=== PATIENT | male | born 1995 | race Two or more races ===

== ENCOUNTER 2017-02-10 12:58 | Emergency (ER) | payer OTHER ==
[2017-02-10 13:04] VITALS: BMI 27.7
--- NOTE | 2017-02-10 13:43 | DR.GENAD ---
HPI - PCP Primary Care Physician: NONE - Complaint/Symptoms Chief Complaint Doctors Comments: Patient was seen by his physician who treated him with azithrmycin, steroids and tessalon perles for cough diagnosed with bronchitis. He denies fever, or diarrhea. He denies getting the influenza shot. He denies cigarettes or alcohol use. Chief Complaint:: "I HAVE BEEN COUGHING AND COUGHING UP BLOOD FOR 2 WEEKS. I TOOK ZITHROMAX AND A STERIOD BUT IT HASN'T GOT ANY BETTER." Self Treatment fo Chief Complaint: ANTIBOTICS - Source History Provided: Patient - Mode of Arrival Mode of Arrival: Ambulatory - Timing Onset of Chief Complaint: 01/27/17 PMH - PMH Past Medical History: No Past Surgical History: No - Family History History of Family Medical Conditions: No - Social History Does patient currently use any type of tobacco product: No Have you used tobacco products in the last 12 months: No Type of Tobacco Use: None Does any household member use tobacco: No Alcohol Use: None Do you use any recreational Drugs:: No Lives With: Family Lives Where: Home - infectious screening In the last 2 months have you had wt loss of >10#?: NO Have you had fever, night sweats or hemotysis?: No Have you traveled outside the country in the last 6 months?: No Isolation: Standard ROS - Review of Systems Eyes: No Symptoms Reported ENTM: No Symptoms Reported Respiratoy: Dry Cough Cardiovascular: No Symptoms Reported Gastrointestinal/Abdominal: No Symptoms Reported Genitourinary: No Symptoms Reported Neurological: No Symptoms Reported Musculoskeletal: No Symptoms Reported Integumentary: No Symptoms Reported Hematologic/Lymphatic: No Symptoms Reported Endocrine: No Symptoms Reported Psychiatric: No Symptoms Reported All Other Systems: Reviewed and Negative PE - Vital Signs Vitals: Temperature 100.6 F Pulse Rate [Left Brachial] 132 Pulse Rate 124 Respiratory Rate 18 Blood Pressure [Left Arm] 117/57 Blood Pressure 127/69 O2 Sat by Pulse Oximetry 97 - General Limitations: No Limitations General Appearance: Alert, In No Apparent Distress - Head Head Exam: Normal Inspection, Atraumatic - Eyes Eye exam: Normal Appearance, PERRL, EOMI - ENT ENT Exam: Normal Exam External Ear Exam: Normal External Inspection TM/Canal Exam: Bilateral Normal Nose Exam: Normal Nose Exam Mouth Exam: Normal Inspection Throat Exam: Normal Inspection - Neck Neck Exam: Normal Inspection - Chest Chest Inspection: Normal Inspection - Respiratory Respiratory Exam: Normal Lung Sounds Bilat Respiratory Exam: Bilateral Clear to Auscultation - Cardiovascular Cardiovascular Exam: Regular Rate, Tachycardia - Abdominal Exam Abdominal Exam: Normal Inspection, Normal Bowel Sounds Abdominal Tenderness: negative: RUQ, RLQ, LUQ, LLQ, Epigastrium, Suprapubic, Diffuse, Mild, Moderate, Severe, Other - Extremities Extremities Exam: Normal Inspection, Full ROM - Back Back Exam: Normal Inspection - Neurologic Neurological Exam: Alert, Oriented X3, CN II-XII Intact - Psychiatric Psychiatric Exam: Normal Affect - Skin Skin Exam: Warm, Dry, Intact Course - Reevaluation 1st: Improved - Consultation Called: 16:00 (Dr Rodgers accepted for further evaluation and treatment) ROR - Labs Reviewed Result Diagrams: 02/10/17 13:55 02/10/17 13:55 Laboratory: WBC 13.9 X10^3/uL (3.6-10.0) H 02/10/17 13:55 RBC 4.13 X10^6/uL (4.7-6.0) L 02/10/17 13:55 Hgb 12.4 g/dL (13.5-18.0) L 02/10/17 13:55 Hct 36.1 % (42.0-54.0) L 02/10/17 13:55 MCV 87.4 fL (80.0-100.0) 02/10/17 13:55 MCH 29.9 pg (27.0-34.0) 02/10/17 13:55 MCHC 34.2 g/dL (33.0-35.0) 02/10/17 13:55 RDW 12.8 % (11.6-16.5) 02/10/17 13:55 Plt Count 190 X10^3/uL (150.0-450.0) 02/10/17 13:55 MPV 7.8 fL (7.4-11.0) 02/10/17 13:55 Neut % 81.6 % (42.0-75.0) H 02/10/17 13:55 Lymph % 8.5 % (21.0-51.0) L 02/10/17 13:55 Mayes % 9.3 % (0.0-13.0) 02/10/17 13:55 Eos % 0.3 % (0.9-2.9) L 02/10/17 13:55 Baso % 0.3 % (0.2-1.0) 02/10/17 13:55 Neut # 11.3 x10^3/uL (2.2-4.8) H 02/10/17 13:55 Lymph # 1.2 X10^3/uL (1.3-2.9) L 02/10/17 13:55 Mayes # 1.3 x10^3/uL (0.3-0.8) H 02/10/17 13:55 Eos # 0.0 x10^3/uL (0.0-0.2) 02/10/17 13:55 Baso # 0.0 X10^3/uL (0.0-0.1) 02/10/17 13:55 Absolute Nucleated RBC 0.0 /100WBC 02/10/17 13:55 Sample Site Rb 02/10/17 14:53 ABG pH 7.440 (7.35-7.45) 02/10/17 14:53 ABG pCO2 27.0 mmHg (35.0-45.0) L 02/10/17 14:53 ABG pO2 62.0 mmHg (80.0-100.0) L 02/10/17 14:53 ABG HCO3 18.3 mmol/L (22-26) L 02/10/17 14:53 ABG O2 Saturation 92.0 % (90-100) 02/10/17 14:53 ABG Base Excess -4.5 mmol/L (-2.0-2.0) L 02/10/17 14:53 [place] Test Na 02/10/17 14:53 A-a Gradient 54.0 mmHg 02/10/17 14:53 FiO2 21.000 02/10/17 14:53 Blood Gas Comments Oz well lj 02/10/17 14:53 Sodium 135 mmol/L (136-145) L 02/10/17 13:55 Corrected Sodium TNP 02/10/17 13:55 Potassium 4.1 mmol/L (3.5-5.1) 02/10/17 13:55 Chloride 100 mmol/L (98-107) 02/10/17 13:55 Carbon Dioxide 23.6 mmol/L (21-32) 02/10/17 13:55 BUN 18 mg/dL (7-18) 02/10/17 13:55 Creatinine 0.96 mg/dL (0.70-1.30) 02/10/17 13:55 Est GFR (MDRD) Af Amer > 60 (>60) 02/10/17 13:55 Est GFR (MDRD) Non-Af > 60 (>60) 02/10/17 13:55 Glucose 106 mg/dL (65-99) H 02/10/17 13:55 Lactic Acid 1.4 mmol/L (0.4-2.0) 02/10/17 14:55 Calcium 8.3 mg/dL (8.5-10.1) L 02/10/17 13:55 Corrected Calcium 9.3 mg/dL (8.5-10.1) 02/10/17 13:55 Total Bilirubin 3.80 mg/dL (0.2-1.0) H 02/10/17 13:55 AST 55 Units/L (15-37) H 02/10/17 13:55 ALT 115 Units/L (12-78) H 02/10/17 13:55 Alkaline Phosphatase 169 Units/L (46-116) H 02/10/17 13:55 C-Reactive Protein 88.00 mg/L (0-3.0) H 02/10/17 13:55 Total Protein 6.6 g/dL (6.4-8.2) 02/10/17 13:55 Albumin 2.8 g/dL (3.4-5.0) L 02/10/17 13:55 Globulin 3.8 g/dL (2.5-4.5) 02/10/17 13:55 Albumin/Globulin Ratio 0.7 Ratio (1.1-2.1) L 02/10/17 13:55 Influenza Type A (PCR) Negative (NEGATIVE) 02/10/17 14:25 Influenza Type B (PCR) Negative (NEGATIVE) 02/10/17 14:25 - XRAY XRAY Interpreted by: Radiologist (Chest: Mulltiple bilateral pulmonary nodules most consistent with metastatic lung disease. Unusual hematogenous inflammatory process is considered less likely. Correlate with history and physical findings. CT chest with contrast: There are innumerable, noncalcified bilateral pulmonary nodules, compatible with metastic disease. For future reference, the largest pulmonary lesion within the medial right lower lobe measures 3.7x2.6cm on image 38, series4. No pleural effusion or pneumothoras is identified. There are multiple mildly enlarged and likely metastatic mediastinal lymph nodes. For future reference, a prominent righty paratracheal lymph node measures 1 cm in short axis on image 17, series 4. The heart size is normal without pericardial effusion. The horacic aorta and great vessels are normal in contour and caliber. The central airways are patent.) - Diagnosis Discharge Problem: Noncalcified pulmonary nodules, Metastatic disease - Discharge Plan Condition: Stable - Follow ups/Referrals Follow ups/Referrals: [facility],None [Primary Care Provider] - 3 days - Instructions
[2017-02-10] MEDS ORDERED: NS 1000 ML 1,000 ML IV ONE (13:49)
[2017-02-10 14:03] LABS: BASOPHILS % (AUTO) 0.3 % (0.2-1.0); EOSINOPHILS % (AUTO) 0.3 % (0.9-2.9); HEMATOCRIT 36.1 % (42.0-54.0); HEMOGLOBIN 12.4 g/dL (13.5-18.0); LYMPHOCYTES # (AUTO) 1.2 X10^3/uL (1.3-2.9); LYMPHOCYTES % (AUTO) 8.5 % (21.0-51.0); MEAN CORPUSCULAR HEMOGLOBIN 29.9 pg (27.0-34.0); MEAN CORPUSCULAR HGB CONC 34.2 g/dL (33.0-35.0); MEAN CORPUSCULAR VOLUME 87.4 fL (80.0-100.0); MEAN PLATELET VOLUME 7.8 fL (7.4-11.0); MONOCYTES # (AUTO) 1.3 x10^3/uL (0.3-0.8); MONOCYTES % (AUTO) 9.3 % (0.0-13.0); NEUTROPHILS # (AUTO) 11.3 x10^3/uL (2.2-4.8); NEUTROPHILS % (AUTO) 81.6 % (42.0-75.0); PLATELET COUNT 190 X10^3/uL (150.0-450.0); RED BLOOD COUNT 4.13 X10^6/uL (4.7-6.0); RED CELL DISTRIBUTION WIDTH 12.8 % (11.6-16.5); WHITE BLOOD COUNT 13.9 X10^3/uL (3.6-10.0)
--- NOTE | 2017-02-10 14:12 | RAD ---
Examination: Chest, PA and lateral views History: Coughing up blood Findings: The heart is normal in size. There are innumerable noncalcified soft tissue nodules filling each lung. The nodules vary in size from several mm diameter to 2.5 cm. There is no evidence for ple ural fluid or bone destruction. Impression: Multiple bilateral pulmonary nodules most consistent with metastatic lung disease. Unusua l hematogenous inflammatory process is considered less likely. Correlate with history and physical fi ndings. CT may be helpful if definitive diagnosis has not been established. Reported By:
[2017-02-10 14:15] LABS: ALANINE AMINOTRANSFERASE 115 Units/L (12-78); ALBUMIN 2.8 g/dL (3.4-5.0); ALKALINE PHOSPHATASE 169 Units/L (46-116); ASPARTATE AMINO TRANSFERASE 55 Units/L (15-37); BLOOD UREA NITROGEN 18 mg/dL (7-18); CALCIUM 8.3 mg/dL (8.5-10.1); CARBON DIOXIDE 23.6 mmol/L (21-32); CHLORIDE 100 mmol/L (98-107); COR CA(FOR HYPOALB) 9.3 mg/dL (8.5-10.1); CREATININE 0.96 mg/dL (0.70-1.30); SODIUM 135 mmol/L (136-145); TOTAL PROTEIN 6.6 g/dL (6.4-8.2); eGFR BLACK RACES > 60 (>60); eGFR NON BLACK RACES > 60 (>60)
[2017-02-10] MEDS ORDERED: NS 1000 ML 1,000 ML ONE ×2 (14:17→17:29)
[2017-02-10] MEDS ORDERED: LEVAQUIN PREMIX IV 750 MG 750 MG/150 ML BAG IV ONE ×2 (14:45→14:49)
--- NOTE | 2017-02-10 15:04 | CT ---
CT chest with contrast Indication: Abnormal chest radiograph, hemoptysis Technique: Helical CT images of the chest were obtained with IV contrast. Reformatted images in the c oronal and sagittal planes were also generated for review. Comparison: Radiograph from same day Findings: There are innumerable, noncalcified bilateral pulmonary nodules, compatible with metastatic disease. For future reference, the largest pulmonary lesion within the medial right lower lobe measu res 3.7 x 2.6 cm on image 38, series 4. No pleural effusion or pneumothorax is identified. There are multiple mildly enlarged and likely metastatic mediastinal lymph nodes. For future reference, a promi nent right paratracheal lymph node measures 1 cm in short axis on image 17, series 4. The heart size is normal without pericardial effusion. The thoracic aorta and great vessels are normal in contour an d caliber. The central airways are patent. Limited images of the upper abdomen demonstrate no significant abnormality. No aggressive osseous les ions are identified. Impression: Innumerable noncalcified bilateral pulmonary nodules, most compatible with metastatic disease of unce rtain primary. Further evaluation with biopsy is advised. Mild mediastinal lymphadenopathy, also likely metastatic in etiology. Reported By:
[2017-02-10 15:18] LABS: ABG BASE EXCESS -4.5 mmol/L (-2.0-2.0); ABG HCO3 18.3 mmol/L (22-26)
[2017-02-10 16:59] VITALS: BP 129/60
== END 2017-02-10 17:32 | disposition short-term general hospital (02) ==
LOC: ER 13:15
DX: R91.1 Solitary pulmonary nodule (principal); C79.9 Secondary malignant neoplasm of unspecified site; R59.0 Localized enlarged lymph nodes
CPT/HCPCS: 36415; 36600; 71020; 71260; 80053; 82803; 83605; 85025; 86140; 87502; 96365; 96367; 96374; 99284; A4222; J1956